=== PATIENT | male | born 1985 | race American Indian/Alaskan Native ===

== ENCOUNTER 2019-11-04 19:55 | Emergency (ER) | payer OTHER ==
--- NOTE | 2019-11-04 20:51 | Event Note ---
ED Screening Note ED Screening Note: headache intermittently states he has HTN occasional dizziness no numbness no weakness no vision changes PMHx HTN is not on any medications no allergies to meds This initial assessment/diagnostic orders/clinical plan/treatment(s) is/are subject to change based on patients health status, clinical progression and re- assessment by fellow clinical providers in the ED. Further treatment and workup at subsequent clinical providers discretion. Patient/guardian urged not to elope from the ED as their condition may be serious if not clinically assessed and managed. Initial orders include: labs, UA
[2019-11-04 21:27] LABS: Basophils % (Auto) 0.7 % (0.0-1.8); Eosinophils # (Auto) 0.1 K/mm3 (0.0-0.4); Eosinophils % (Auto) 1.4 % (0.0-4.3); Hematocrit 45.5 % (35.5-45.6); Hemoglobin 15.1 gm/dl (11.8-15.2); Lymphocytes # (Auto) 2.3 K/mm3 (1.2-5.4); Lymphocytes % (Auto) 52.7 % (13.4-35.0); Mean Corpuscular HGB Conc 33 % (32-34); Mean Corpuscular Volume 81 fl (84-94); Monocytes # (Auto) 0.4 K/mm3 (0.0-0.8); Monocytes % (Auto) 9.9 % (0.0-7.3); Platelet Count 194 K/mm3 (140-440); Red Cell Distribution Width 13.1 % (13.2-15.2)
[2019-11-04 21:37] LABS: Albumin 4.8 g/dL (3.9-5); Calcium 10.1 mg/dL (8.4-10.2)
--- NOTE | 2019-11-04 21:40 | Emergency Department Report ---
HPI - General Chief Complaint: High BP Time Seen by Provider: 11/04/19 20:48 - HPI HPI: 34-year-old -[place] male presents to the emergency department from nursing home with complaint of elevated blood pressure. He presents with a blood pressure of 240/160. He has no complaints of any chest pain, shortness of breath, headache. He does have a history of hypertension and says he has not been on blood pressure medication for the past 3 years. He denies tobacco or illicit drug use. ED Past Medical Hx - Social History Smoking Status: Never Smoker Substance Use Type: None - Medications Home Medications: Home Medications Medication Instructions Recorded Confirmed Last Taken Type amLODIPine 10 mg PO DAILY #30 tab 11/05/19 Unknown Rx ED Review of Systems ROS: Stated complaint: HIGH BP Other details as noted in HPI Comment: All other systems reviewed and negative Constitutional: denies: chills, fever Eyes: denies: vision change Respiratory: denies: shortness of breath Cardiovascular: denies: chest pain Gastrointestinal: denies: abdominal pain Musculoskeletal: denies: back pain, joint swelling Neurological: denies: headache, weakness Physical Exam - Physical Exam Vital Signs: Vital Signs 11/04/19 20:45 Temperature 98.0 F Pulse Rate 66 Respiratory 20 Rate Blood Pressure 240/161 O2 Sat by Pulse 94 Oximetry Physical Exam: GENERAL: The patient is well-developed well-nourished. HEENT: Normocephalic. Atraumatic. Patient has moist mucous membranes. EYES: Extraocular motions are intact. NECK: Supple. Trachea is midline CHEST/LUNGS: Clear to auscultation. There is no respiratory distress noted. HEART/CARDIOVASCULAR: Regular. There is no tachycardia. ABDOMEN: Abdomen is soft, nontender. Patient has normal bowel sounds. SKIN: Skin is warm and dry. NEURO: The patient is awake, alert, and oriented. The patient is cooperative. The patient has no focal neurologic deficits. Normal speech. Cranial nerves II through XII grossly intact. MUSCULOSKELETAL: There is no tenderness or deformity. There is no evidence of acute injury. ED Course Vital Signs 11/04/19 20:45 Temperature 98.0 F Pulse Rate 66 Respiratory 20 Rate Blood Pressure 240/161 O2 Sat by Pulse 94 Oximetry ED Medical Decision Making - Lab Data Result diagrams: 11/04/19 20:58 11/04/19 20:58 - Medical Decision Making This patient was sent in from the nursing home for the complaint of very elevated blood pressure and he did present with a blood pressure of about 240/160. He has a history of hypertension and has not been on medications for the past 3 years. He has no physical complaints at this time. An IV was placed and the patient was given a dose of hydralazine. His blood pressure came down to a much more reasonable level. Labs were unremarkable including CBC and metabolic panel. The patient has been reevaluated multiple times over multiple hours and has been seen resting comfortably in no acute distress. He will be started on amlodipine. He has been instructed to stay away from salt and caffeine, keep a blood pressure log, and follow-up with the nursing home physician. He will return to the emergency department with any concerns or acute distress. Critical Care Time: No Critical care attestation.: If time is entered above; I have spent that time in minutes in the direct care of this critically ill patient, excluding procedure time. ED Disposition Clinical Impression: Asymptomatic hypertensive urgency Disposition: DC-01 TO HOME OR SELFCARE Is pt being admited?: No Condition: Stable Instructions: Hypertension (ED) Additional Instructions: Please follow up with the nursing home physician. I am starting you on a blood pressure medication called amlodipine/Norvasc. This medication is taken once per day, usually in the morning. Try and stay away from foods that are high in salt and caffeinated products. Keep a blood pressure log. Return to the emergency Department with any worsening of her symptoms or any acute distress. Prescriptions: amLODIPine 10 mg PO DAILY #30 tab Referrals: PRIMARY CARE [Primary Care Provider] - 2-3 Days Time of Disposition: 02:00
[2019-11-04] MEDS ORDERED: hydrALAZINE 20 MG/1 ML INJ IV ONE (22:03)
[2019-11-05] MEDS ORDERED: ACETAMINOPHEN 325 MG TAB PO ONE (00:42)
[2019-11-05 02:09] VITALS: BP 168/97
== END 2019-11-05 02:09 | disposition home or self-care (01) ==
LOC: ED 19:55
DX: I16.0 Hypertensive urgency (principal); I10 Essential (primary) hypertension
CPT/HCPCS: 36415; 80053; 85025; 96374; 99283; J0360